=== PATIENT | female | born 1990 | race African-American/Black ===

== ENCOUNTER 2020-08-31 08:56 | Emergency (ER) | payer SELFPAY ==
[2020-08-31] MEDS ORDERED: Ibuprofen 200 MG TAB ONE (09:38)
[2020-08-31 10:28] LABS: Anion Gap 16 mmol/L (10-20); BUN (Urea Nitrogen) 8 mg/dL (7.0-18.7); Calc. Creatinine Clearance 0 mL/min (70-130); Calcium 9.3 mg/dL (7.8-10.44); Carbon Dioxide 21 mmol/L (22-29); Chloride 97 mmol/L (98-107); Glucose 311 mg/dL (70-105); Potassium 3.5 mmol/L (3.5-5.1); Sodium 130 mmol/L (136-145)
[2020-08-31] MEDS ORDERED: Insulin Regular 300 UNITS/3 ML VIAL ONE (10:56)
[2020-08-31 15:40] LABS: SARS-CoV-2 PCR by NAA Not Detected (NotDetected)
== END 2020-08-31 11:50 | disposition home or self-care (01) ==
LOC: ERS 08:56
DX: B34.9 Viral infection, unspecified (principal); E11.9 Type 2 diabetes mellitus without complications; Z79.84 Long term (current) use of oral hypoglycemic drugs
CPT/HCPCS: 36416; 80048; 87635; 87804; 99283; J1815; U0003; U0005